=== PATIENT | male | born 1985 | race Caucasian/White ===

== ENCOUNTER 2017-09-30 19:20 | Emergency (ER) | payer OTHER ==
--- NOTE | 2017-09-30 19:34 | EDPHY ---
H & P Stated Complaint: r abd strain while skiing Time Seen by Provider: 09/30/17 19:33 - Personal History Current Tetanus/Diphtheria Vaccine: Yes Current Tetanus Diphtheria and Acellular Pertussis (TDAP): Yes - Medical/Surgical History Hx Asthma: No Hx Chronic Respiratory Disease: No Hx Diabetes: No Hx Cardiac Disease: No Hx Renal Disease: No Hx Cirrhosis: No Hx Alcoholism: No Hx HIV/AIDS: No Hx Splenectomy or Spleen Trauma: No - Social History Smoking Status: Current some day smoker Constitutional: Initial Vital Signs Temperature (C) 36.3 C 09/30/17 19:25 Heart Rate 66 09/30/17 19:25 Respiratory Rate 18 09/30/17 19:25 Blood Pressure 180/73 H 09/30/17 19:25 O2 Sat (%) 98 09/30/17 19:25 O2 Delivery Mode Room Air Allergies/Adverse Reactions: morphine Allergy (Verified 09/30/17 19:25) Home Medications: Medication Instructions Recorded NK [No Known Home Meds] 09/30/17 Medical Decision Making - Diagnostics Imaging: Discussed imaging studies w/ yardage caller Radiologist, I viewed and interpreted images myself ED Course/Re-evaluation: CHIEF COMPLAINT: Abdominal pain HISTORY OF PRESENT ILLNESS: The patient is a 31 y/o male complaining of worsening right-sided abdominal pain , onset 14:30, 5 hours ago. He was snowboarding and hitting multiple jumps when the pain began. The pain has not improved since returning home. Had clear liquids at 16:30 and marijuana gummies at 19:00. Denies urinary or bowel complaints, chest pain, shortness of breath, numbness, paresthesias, or fever. REVIEW OF SYSTEMS: A 10 point review of systems was performed and is negative with the exception of the elements mentioned in the history of present illness. PHYSICAL EXAM: HR, BP, O2 Sat, RR. Temp noted General Appearance: Alert, well hydrated, appropriate, and non-toxic appearing. Head: Atraumatic without scalp tenderness or obvious injury Eyes: Pupils equal, round, reactive to light and accommodation, EOMI, no trauma , no injection. Ears: Clear bilaterally, no perforation, normal landmarks Nose: Atraumatic, no rhinorrhea, clear. Throat: There is no erythema or exudates, no lesions, normal tonsils, mucus membranes moist. Neck: Supple, nontender, no lymphadenopathy. Respiratory: No retractions, no distress, no wheezes, and no accessory muscle use. Lungs are clear to auscultation bilaterally. Cardiovascular: Regular rate and rhythm, no murmurs, rubs, or gallops. Good capillary refill all extremities. Gastrointestinal: Right lower quadrant tenderness to palpation. Abdomen is soft , non-distended, no masses, no rebound, no guarding, no peritoneal signs. Musculoskeletal: Normal active ROM of all extremities, atraumatic. Neurological: Alert, appropriate, and interactive. Nonfocal neuro. Skin: No rashes, good turgor, no nodules on palpation. Past medical history: Denies Past surgical history: Denies Family history: Denies Social history: Lives in [place], single, admits to marijuana use DIAGNOSTICS/PROCEDURES/CRITICAL CARE TIME: Abdominopelvic CT: Torn rectus abdominis muscle DIFFERENTIAL DIAGNOSIS: The differential diagnosis for the patient's abdominal pain included but was not limited to torn rectus abdominis muscle, appendicitis, cholecystitis, hernias, testicular torsion, gastritis, and urinary tract infection. MEDICAL DECISION MAKING: The patient is a 31 y/o male presenting with worsening right lower quadrant tenderness to palpation, onset [address] and labs ordered. 1mg IV Dilaudid, 4mg IV Zofran, and 1L IV NS administered. 2020: Patient has a white count of 16.34 2129: Spoke with Dr. Walton, radiologist, regarding patient's abdominopelvic CT findings. Patient has a torn rectus abdominis muscle. 2132: Reassessed patient and discussed imaging and laboratory findings. I have prescribed him Oxycodone for the pain and advised him to follow up with [facility] in the next week. Return precautions provided; patient is comfortable with this plan. - Data Points Laboratory Results: Laboratory Results 09/30/17 19:40 09/30/17 19:40 09/30/17 09/30/17 09/30/17 19:44 19:40 19:40 WBC 16.34 10^3/uL H 10^3/uL (3.80-9.50) RBC 4.91 10^6/uL 10^6/uL (4.40-6.38) Hgb 15.5 g/dL g/dL (13.7-17.5) POC Hgb 16.0 gm/dL gm/dL (13.7-17.5) Hct 42.7 % % (40.0-51.0) POC Hct 47 % % (40-51) MCV 87.0 fL fL (81.5-99.8) MCH 31.6 pg pg (27.9-34.1) MCHC 36.3 g/dL g/dL (32.4-36.7) RDW 13.2 % % (11.5-15.2) Plt Count 271 10^3/uL 10^3/uL (150-400) MPV 9.3 fL fL (8.7-11.7) Neut % (Auto) 79.2 % H % (39.3-74.2) Lymph % (Auto) 12.4 % L % (15.0-45.0) [place] % (Auto) 7.4 % % (4.5-13.0) Eos % (Auto) 0.0 % L % (0.6-7.6) Baso % (Auto) 0.6 % % (0.3-1.7) Nucleat RBC Rel Count 0.0 % % (0.0-0.2) Absolute Neuts (auto) 12.95 10^3/uL H 10^3/uL (1.70-6.50) Absolute Lymphs (auto) 2.02 10^3/uL 10^3/uL (1.00-3.00) Absolute Monos (auto) 1.21 10^3/uL H 10^3/uL (0.30-0.80) Absolute Eos (auto) 0.00 10^3/uL L 10^3/uL (0.03-0.40) Absolute Basos (auto) 0.09 10^3/uL 10^3/uL (0.02-0.10) Absolute Nucleated RBC 0.00 10^3/uL 10^3/uL (0-0.01) Immature Gran % 0.4 % % (0.0-1.1) Immature Gran # 0.07 10^3/uL 10^3/uL (0.00-0.10) POC Sodium 140 mEq/L mEq/L (135-145) Sodium 139 mEq/L mEq/L (135-145) POC Potassium 3.6 mEq/L mEq/L (3.3-5.0) Potassium 4.1 mEq/L mEq/L (3.5-5.2) POC Chloride 104 mEq/L mEq/L (97-110) Chloride 104 mEq/L mEq/L (97-110) Carbon Dioxide 22 mEq/l mEq/l (22-31) Anion Gap 13 mEq/L mEq/L (8-16) POC BUN 5 mg/dL L mg/dL (7-23) BUN 7 mg/dL mg/dL (7-23) Creatinine 0.7 mg/dL mg/dL (0.7-1.3) POC Creatinine 0.6 mg/dL L mg/dL (0.7-1.3) Estimated GFR > 60 Glucose 108 mg/dL H mg/dL (70-100) POC Glucose 117 mg/dL H mg/dL (70-100) Calcium 9.7 mg/dL mg/dL (8.5-10.4) Total Bilirubin 1.1 mg/dL mg/dL (0.1-1.4) Conjugated Bilirubin 0.3 mg/dL mg/dL (0.0-0.5) Unconjugated Bilirubin 0.8 mg/dL mg/dL (0.0-1.1) AST 29 IU/L IU/L (17-59) ALT 34 IU/L IU/L (21-72) Alkaline Phosphatase 79 IU/L IU/L (38-126) Total Protein 7.5 g/dL g/dL (6.3-8.2) Albumin 4.8 g/dL g/dL (3.5-5.0) Lipase 109 IU/L IU/L (23-300) Medications Given: Discontinued Medications Hydromorphone HCl (Dilaudid) 1 mg IVP EDNOW ONE Stop: 09/30/17 19:40 Last Admin: 09/30/17 19:44 Dose: 1 mg Sodium Chloride (Ns) 1,000 mls @ 0 mls/hr IV EDNOW ONE; Wide Open PRN Reason: Protocol Stop: 09/30/17 19:40 Last Admin: 09/30/17 19:44 Dose: 1,000 mls Ondansetron HCl (Zofran) 4 mg IVP EDNOW ONE Stop: 09/30/17 19:40 Last Admin: 09/30/17 19:44 Dose: 4 mg Point of Care Test Results: 09/30/17 19:44 POC Sodium 140 POC Potassium 3.6 POC Chloride 104 POC BUN 5 L POC Creatinine 0.6 L POC Glucose 117 H Departure - Departure Disposition: Home, Routine, Self-Care Clinical Impression: Torn rectus abdominis muscle Strain of rectus abdominis muscle Qualifiers: Encounter type: initial encounter Qualified Code(s): S39.011A - Strain of muscle, fascia and tendon of abdomen, initial encounter Condition: Good Instructions: Muscle Strain (ED) Additional Instructions: 1. Take oxycodone as prescribed. 2. Follow up with [facility] next week. 3. Return to the Emergency Department if you experience worsening pain, swelling , numbness, weakness or other concerns. Referrals: Jagdeep Trotter MD [Medical Doctor] - As per Instructions [facility] [Outside] - As per Instructions Report Scribed for: Steve Hatfield Report Scribed by: Lizett Wilson Date of Report: 09/30/17 Time of Report: 19:36
[2017-09-30] MEDS ORDERED: HYDROmorphONE/DILAUDID 2 MG/ML INJ IVP ONE (19:39)
[2017-09-30] MEDS ORDERED: ONDANSETRON 4 MG/2 ML VIAL IVP ONE (19:39)
[2017-09-30] MEDS ORDERED: NS 1,000 ML IV ONE (19:39)
[2017-09-30 19:51] LABS: PLATELET COUNT 271 10^3/uL (150-400)
[2017-09-30] MEDS ORDERED: IOPAMIDOL (ISOVUE-300) 100 ML BTL ONE (20:05)
[2017-09-30] MEDS ORDERED: ERTAPENEM 1 GM VIAL IVP ONE (20:51)
[2017-09-30] MEDS ORDERED: ONDANSETRON 4MG PREPACK#2 BTL TAKEHOME ONE (21:35)
[2017-09-30] MEDS ORDERED: OXYCODONE/APAP 5/325MG PREPACK#4 BTL TAKEHOME ONE (21:35)
[2017-09-30 21:54] VITALS: BP 128/79; PULSE 59; RESP 16; TEMP 98.1; O2SAT 97
== END 2017-09-30 22:00 | disposition home or self-care (01) ==
DX: S39.011A Strain of muscle, fascia and tendon of abdomen, initial encounter (principal); F17.200 Nicotine dependence, unspecified, uncomplicated; E86.9 Volume depletion, unspecified; V00.318A Other snowboard accident, initial encounter; Y99.8 Other external cause status; Y93.23 Activity, snow (alpine) (downhill) skiing, snowboarding, sledding, tobogganing and snow tubing
CPT/HCPCS: 82947-QW; 96374; J1170; J1335; J2405; Q9967